=== PATIENT | male | born 1985 | race Caucasian/White ===

== ENCOUNTER 2016-05-05 10:03 | Inpatient (IN) | payer SELFPAY ==
[2016-05-05 11:56] LABS: % IMMATURE GRANULYOCYTES 1.3 % (0.0-1.1); ABSOLUTE IMMATURE GRANULOCYTES 0.09 10^3/uL (0.00-0.10); ADD DIFF? NO; ADD MORPH? NO; ADD SCAN? NO; ATYPICAL LYMPHOCYTE FLAG 10 (0-99); FRAGMENT RBC FLAG 0 (0-99); HEMATOCRIT 39.4 % (40.0-51.0); LEFT SHIFT FLG 10 (0-99); LIPEMIA HEMOLYSIS FLAG 90 (0-99); MEAN CELL HEMOGLOBIN 30.6 pg (27.9-34.1); MEAN CELL HEMOGLOBIN CONCENTR. 35.5 g/dL (32.4-36.7); MEAN CELL VOLUME 86.2 fL (81.5-99.8); PLATELET CLUMPS FLAG 0 (0-99); PLATELET COUNT 357 10^3/uL (150-400); RED BLOOD CELL COUNT 4.57 10^6/uL (4.40-6.38); RED CELL DISTRIBUTION WIDTH 14.5 % (11.5-15.2)
[2016-05-05] MEDS ORDERED: HYDROmorphONE/DILAUDID 1 MG/ML SYR IVP ONE (12:12)
[2016-05-05] MEDS ORDERED: ONDANSETRON 4 MG/2 ML VIAL IVP ONE (12:12)
[2016-05-05] MEDS ORDERED: NS 1,000 ML IV ONE ×2 (12:12→12:51)
--- NOTE | 2016-05-05 12:17 | EDPHY ---
H & P Stated Complaint: Abdominal pain RUQ, urine dark brown, nausea 2 weeks. Source: Patient Exam Limitations: No limitations - Personal History Current Tetanus/Diphtheria Vaccine: No Current Tetanus Diphtheria and Acellular Pertussis (TDAP): No Tetanus Vaccine Date: 2006 - Medical/Surgical History Hx Asthma: No Hx Chronic Respiratory Disease: No Hx Diabetes: No Hx Cardiac Disease: No Hx Renal Disease: No Hx Cirrhosis: No Hx Alcoholism: Yes Hx HIV/AIDS: No Hx Splenectomy or Spleen Trauma: No Other PMH: ETOH gave up 2 weeks, JAMISON chronic back pain. - Family History Significant Family History: No pertinent family hx - Social History Smoking Status: Current every day smoker Alcohol Use: Heavy (Last drink 2 weeks ago) Drug Use: Marijuana Time Seen by Provider: 05/05/16 12:14 HPI/ROS: HPI: 30-year-old male presents to emergency department with chief concern 5/10 right upper quadrant and epigastric pain for 2 weeks associated with decreased appetite, nausea, vomiting, intermittent diarrhea, dark colored urine common and whitish stools. Denies fever, chills, dizziness, headache, URI symptoms, shortness of breath, chest pain. Reports intermittent left lower quadrant and back pain with urination or stool. History of chronic EtOH use since age 16. Pack daily smoker since 8th grade. Uses cannabis occasionally. He works as a telephone maintenance mechanic. He denies other illicit drug use. Denies past medical history other than chronic back pain. Recently moved here from [place]. ROS:10 point review of systems is negative other than as stated in HPI (Aleena Carrillo) - Social History Additional Social History: In a relationship, works as a telephone maintenance mechanic (Aleena Carrillo) - Physical Exam Exam: Vital signs stable, reviewed by me General: Awake, alert, calm, cooperative. No acute distress. Head: Normalocephalic. Atraumatic. EENT: PERRLA. EOMI. Scleral icterus bilaterally. No nystagmus. No injection. TMs intact bilaterally with normal landmarks. No rhinnorhea, nasal passages clear. Oropharynx without redness, exudates, or lesions. Tonsils 2+ bilaterally , no exudates. Neck: Supple, nontender. No lymphadenopathy. Full range of motion. No meningismus. Respiratory: Breathing unlabored. Breath sounds equal bilaterally and clear to auscultation. No adventitious sounds. CV: Chest nontender, atraumatic. Heart rate regular. No murmur, distal pulses 2+ bilaterally. Brisk cap refill all extremities. GI: Abdomen soft, mild distension, moderate epigastric and right upper quadrant tenderness. No pulsatile masses. Bowel sounds normoactive and positive x4 quadrants. : No CVA or flank tenderness. Neuro: Alert. Oriented x 3. Speech clear. Nonfocal cranial nerves throughout. Sensation intact all extremities. Skin: Skin warm, dry, intact. No rashes, abrasions, or lacerations. Skin turgor normal. Extremities: Full range of motion in all 4 extremities. Strength 5+ all extremities. (Aleena Carrillo) Constitutional: Initial Vital Signs Temperature (C) 36.7 C 05/05/16 10:06 Heart Rate 95 05/05/16 10:06 Respiratory Rate 16 05/05/16 10:06 Blood Pressure 122/79 H 05/05/16 10:06 O2 Sat (%) 93 05/05/16 10:06 O2 Delivery Mode Room Air Allergies/Adverse Reactions: No Known Allergies Allergy (Unverified 05/05/16 10:10) Home Medications: Medication Instructions Recorded NK [No Known Home Meds] 05/05/16 Medical Decision Making ED Course/Re-evaluation: 30-year-old male presents to emergency department with chief concern mid epigastric, right upper quadrant pain, dark colored urine, whitish stools, nausea, vomiting x2 weeks. He has been a chronic alcohol abuser since age 16. Denies IV drug abuse. He is jaundiced with scleral icterus. White count 7090. BUN and creatinine are 15 and 0.8. Total bili 12.2, conjugated bili 10.5, unconjugated bili 1.7. AST 250, ALT 505, alk-phos 362, lipase 123. Urinalysis negative for UTI. Positive for bili. Given 2 L normal saline, 4 mg IV Zofran, 1 mg IV Dilaudid. Ultrasound shows a contracted gallbladder. Will need to be repeated. CT abdomen pelvis notable for ascites and a mildly enlarged liver. Will be admitted to the hospitalist service for alcoholic hepatitis. Report given to Dr. Noemi Davenport. (Aleena Carrillo) Differential Diagnosis: Differential diagnosis includes but is not limited to and in no particular order pancreatitis, alcoholic hepatitis, bacterial peritonitis, cholecystitis, dyspepsia, liver CA (Aleena Carrillo) I have evaluated and participated in the management of this patient. My co- signature indicates that I have reviewed this chart and that I agree with the findings and the plan of care as documented. My personal history and physical findings include: 30 year old male with two weeks of RUQ and midepigastric abdominal pain, N/V, dark urine, and light stools. No fever. History of alcohol abuse since teens. On exam he is jaundiced with scleral icterus, lungs cta, cor RRR, abdomen slightly distended with moderate tenderness in RUQ, no palpable hepatomegaly. He is alert and appropriate. Neuro exam nonfocal. I have reviewed labs and radiographs. He appears to have alcoholic hepatitis with a conjugated hyperbilirubinemia ( 12.2 bili), elevated transaminases, lipase 123. RUQ US shows contracted GB; biliary obstruction possible. Viral hepatitis also in the differential. He is being admitted to the medicine service. No active alcohol withdrawal signs at time of my exam. (Sabina Sabillon) Other Provider: I have evaluated and participated in the management of this patient. My co- signature indicates that I have reviewed this chart and that I agree with the findings and the plan of care as documented. My personal history and physical findings include: (Sabina Sabillon) - Data Points Laboratory Results: Laboratory Results 05/05/16 11:45 05/05/16 11:45 Medications Given: Discontinued Medications Famotidine (Pepcid) 20 mg PO BID DONTAE Stop: 11/02/16 20:59 Last Admin: 05/07/16 09:09 Dose: 20 mg Folic Acid (Folic Acid) 1 mg PO DAILY DONTAE Stop: 11/01/16 15:59 Last Admin: 05/07/16 09:09 Dose: 1 mg Hydromorphone HCl (Dilaudid) 1 mg IVP EDNOW ONE Stop: 05/05/16 12:13 Last Admin: 05/05/16 12:39 Dose: 1 mg Sodium Chloride (Ns) 1,000 mls @ 0 mls/hr IV ONCE ONE PRN Reason: Wide Open Stop: 05/05/16 12:13 Last Admin: 05/05/16 12:38 Dose: 1,000 mls Sodium Chloride (Ns) 1,000 mls @ 0 mls/hr IV ONCE ONE PRN Reason: Wide Open Stop: 05/05/16 12:52 Last Admin: 05/05/16 13:00 Dose: 1,000 mls Sodium Chloride (Ns) 1,000 mls @ 150 mls/hr IV CONT DONTAE Stop: 11/01/16 15:59 Last Admin: 05/06/16 11:43 Dose: 1,000 mls Famotidine/Sodium Chloride (Pepcid 20 Mg (Premix)) 50 mls @ 200 mls/hr IV Q12HRS DONTAE Stop: 11/01/16 20:59 Last Admin: 05/06/16 11:43 Dose: 50 mls Multivitamins (Tab-A-Ector) 1 each PO DAILY DONTAE Stop: 11/01/16 15:59 Last Admin: 05/07/16 09:09 Dose: 1 each Ondansetron HCl (Zofran) 4 mg IVP EDNOW ONE Stop: 05/05/16 12:13 Last Admin: 05/05/16 12:39 Dose: 4 mg Departure - Departure Disposition: [facility] Inpatient Acute Clinical Impression: Alcoholic hepatitis with ascites Condition: Good
[2016-05-05 12:28] LABS: ALANINE AMINOTRANSFERASE 505 IU/L (21-72); ALBUMIN 3.9 g/dL (3.5-5.0); ALKALINE PHOSPHATASE 362 IU/L (38-126); ANION GAP 12 mEq/L (8-16); ASPARTATE AMINOTRANSFERASE 250 IU/L (17-59); BILIRUBIN,TOTAL 12.2 mg/dL (0.1-1.4); BILIRUBIN-CONJUGATED 10.5 mg/dL (0.0-0.5); BILIRUBIN-UNCONJUGATED 1.7 mg/dL (0.0-1.1); CALCIUM 9.5 mg/dL (8.5-10.4); CARBON DIOXIDE 22 mEq/l (22-31); CHLORIDE 103 mEq/L (97-110); CREATININE 0.8 mg/dL (0.7-1.3); GLOMERULAR FILTRATION RATE > 60; GLUCOSE 82 mg/dL (70-100); POTASSIUM 4.6 mEq/L (3.5-5.2); SODIUM 137 mEq/L (134-144); TOTAL PROTEIN 7.1 g/dL (6.3-8.2)
[2016-05-05 13:07] LABS: INR 0.93 (0.83-1.16); PROTIME(PATIENT) 12.4 SEC (12.0-15.0)
[2016-05-05 13:08] LABS: APTT 24.9 SEC (23.0-38.0)
[2016-05-05] MEDS ORDERED: IOPAMIDOL (ISOVUE-300) 100 ML BTL IV ONE (13:21)
[2016-05-05 13:31] LABS: COLOR AMBER; LEUKOCYTE ESTERASE,URINE NEGATIVE (NEGATIVE); NITRITE,URINE NEGATIVE (NEGATIVE)
[2016-05-05] MEDS ORDERED: ONDANSETRON 4 MG/2 ML VIAL IVP PRN (15:40)
[2016-05-05] MEDS ORDERED: ONDANSETRON DISINTEGRATING 4 MG TAB PO PRN (15:40)
[2016-05-05] MEDS ORDERED: oxyCODONE IR 5 MG TAB PO PRN (15:40)
[2016-05-05] MEDS ORDERED: LORazepam 1 MG TAB PO PRN (15:47)
--- NOTE | 2016-05-05 16:36 | GHP ---
[f rep st] HISTORY AND PHYSICAL DATE OF ADMISSION: 05/05/2016 CHIEF COMPLAINT: Abdominal pain, nausea and vomiting. HISTORY OF PRESENT ILLNESS: Mr. Silva is a 30-year-old male with a history of extensive alcohol abuse who presents to the emergency department with 2 weeks of epigastric and right upper quadrant abdominal pain associated with nausea, vomiting, dark colored urine and ubaldo-colored stools. He states he began feeling ill approximately 2 weeks ago after taking 8 tablets of Kratom. He states this is an over the counter synthetic form of the drug Aleena, which he was given by a friend. In addition to this, he had been drinking heavily. He quantifies his alcohol intake at four to six 24 ounce beers per day along with shots of whiskey as needed until he becomes intoxicated. When he fell ill after the Kratom tablets, he quit drinking completely. He states his last drink was over 2 weeks ago. Since that time, he has had persistent epigastric and right upper quadrant abdominal pain. This is associated with nausea and vomiting approximately twice a day. He denies hematemesis, coffee-ground emesis or melanotic stools. He denies fevers or chills. He has had a poor appetite in the setting of his above symptoms. He has tried to push fluids. His symptoms have not improved and he ultimately sought care in the emergency department today. In the ER, he was found to have elevated liver enzymes with hyperbilirubinemia. His imaging was not consistent with an obstructive pattern, though his gallbladder was contracted on the ultrasound. He was given 2 L of normal saline and he was admitted to the hospital for further management. PAST MEDICAL HISTORY: 1. Alcohol abuse. 2. Tobacco abuse. 3. Cannabis use. MEDICATIONS: None. ALLERGIES: No known drug allergies. FAMILY HISTORY: His maternal grandmother had liver cancer and melanoma. He also reports a family history of alcohol abuse. SOCIAL HISTORY: The patient has a female partner. He has a history of heavy drinking including beer and whiskey. His last drink was 2 weeks ago. He reports occasional cannabis use. He denies any history of IV drug abuse. 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 REVIEW OF SYSTEMS: A 10-point review of systems was performed and is negative except as per HPI. OBJECTIVE: VITAL SIGNS: Temperature is 36.7, blood pressure 113/65, heart rate 52, respiratory rate 16, he is 97% on room air. GENERAL: The patient is awake, alert, oriented, no acute distress. HEENT: Head is atraumatic, normocephalic. Pupils are equal, round, and reactive to light. Sclerae are icteric. Oropharynx is clear. Mucous membranes are moist. NECK: Supple. There is no JVD. HEART: Regular rate and rhythm without murmur. LUNGS: Clear to auscultation bilaterally. ABDOMEN: Soft. He has mild epigastric and right upper quadrant tenderness to palpation with liver edge palpable just below the right costal margin. There is no rebound, rigidity or guarding. No fluid wave is present. EXTREMITIES: Without cyanosis, clubbing, or edema. SKIN: Jaundiced. NEUROLOGIC: Grossly nonfocal. There is no asterixis. IMAGING: CT abdomen, pelvis with IV contrast shows mild hepatomegaly without evidence of biliary obstruction or evidence of pancreatitis. The gallbladder is contracted. There is a small amount of ascites in the pelvis. Abdominal ultrasound shows, again, a contracted gallbladder. The study was nondiagnostic for gallstones. There is no pericholecystic fluid. The liver was homogeneous with normal echogenicity without evidence of hepatic mass or metastatic disease. LABORATORY DATA: CBC reveals a normal white blood cell count. INR is normal at 0.93, PT is 12.4, electrolytes are normal, creatinine 0.8. Total bilirubin 12.2, conjugated bilirubin 10.5, unconjugated bilirubin 1.7. AST 250, ALT 505, alkaline phosphatase 362. Lipase is normal at 123. Urinalysis is positive for bilirubin, 4+ urobilinogen, is otherwise negative. Albumin is 3.9. ASSESSMENT AND PLAN: Mr. Silva is a 30-year-old male who presents to the hospital with 2 weeks of abdominal pain, nausea and vomiting. 1. Abdominal pain in setting of elevated liver enzymes with conjugated hyperbilirubinemia. His clinical picture and history is most consistent with alcoholic hepatitis. Also consider drug or toxin effect given his use of Kratom versus a viral hepatitis or biliary obstruction. He has no evidence of infection at this time. His common bile duct was of normal caliber on his ultrasound. However, given the obstructive pattern of his liver function tests , an MRCP will be ordered for the morning. We will also check a viral hepatitis panel as well as antismooth muscle antibody and antimitochondrial antibody to rule out autoimmune hepatitis and primary biliary cholangitis. His discriminant function score is 7, thus he is not a candidate for steroids at this time. He will receive supportive care with IV fluid resuscitation and a low-sodium diet. He has a small amount of ascites, but I do not think there is an indication for paracentesis at this time. We will continue to trend his liver function tests and obtain a Gastroenterology consult should his trend worsen. 2. History of alcohol abuse. The patient states his last drink was 2 weeks ago. We will monitor him on CIWA protocol to ensure no evidence of withdrawal. Replace his vitamins and monitor closely. 3. Deep vein thrombosis prophylaxis. The patient is low risk. We will place sequential compression devices for now. CODE STATUS: Patient is full code. DISPOSITION: Patient admitted to inpatient status as he will likely require greater than 48 hours hospitalization for ongoing management of his acute suspected alcoholic hepatitis. /[id number]/MODL MTDD
[2016-05-05] MEDS: NS 1,000 ML IV SCH (17:07)
[2016-05-05] MEDS: FOLIC ACID 1 MG TAB PO SCH (17:16)
[2016-05-05] MEDS: MULTIVITAMINS 1 EACH TAB PO SCH (17:16)
[2016-05-05 19:02] LABS: PHENCYCLIDINE URINE BCH < 6 ng/ml (NEGATIVE); PHENCYCLIDINE URINE BCH NEGATIVE (NEGATIVE)
[2016-05-05 19:13] LABS: TETRAHYDROCANNABINOL URINE > 800 ng/mL (NEGATIVE)
[2016-05-05 19:18] LABS: TETRAHYDROCANNABINOL URINE > 800 ng/mL (NEGATIVE)
[2016-05-05] MEDS: FAMOTIDINE 20 MG/NACL 50 ML IV SCH (20:10)
[2016-05-06] MEDS: NS 1,000 ML IV SCH ×2 (03:01→11:43)
[2016-05-06 04:39] LABS: % IMMATURE GRANULYOCYTES 1.3 % (0.0-1.1); ABSOLUTE IMMATURE GRANULOCYTES 0.09 10^3/uL (0.00-0.10); ADD DIFF? NO; ADD MORPH? NO; ADD SCAN? NO; ATYPICAL LYMPHOCYTE FLAG 10 (0-99); FRAGMENT RBC FLAG 0 (0-99); HEMATOCRIT 35.8 % (40.0-51.0); HEMOGLOBIN 12.9 g/dL (13.7-17.5); LEFT SHIFT FLG 10 (0-99); LIPEMIA HEMOLYSIS FLAG 90 (0-99); MEAN CELL HEMOGLOBIN 30.9 pg (27.9-34.1); MEAN CELL VOLUME 85.6 fL (81.5-99.8); MEAN PLATELET VOLUME 10.5 fL (8.7-11.7); PLATELET CLUMPS FLAG 0 (0-99); PLATELET COUNT 348 10^3/uL (150-400); RED BLOOD CELL COUNT 4.18 10^6/uL (4.40-6.38); RED CELL DISTRIBUTION WIDTH 14.6 % (11.5-15.2)
[2016-05-06 04:49] LABS: INR 0.96 (0.83-1.16); PROTIME(PATIENT) 12.7 SEC (12.0-15.0)
[2016-05-06 04:58] LABS: ALANINE AMINOTRANSFERASE 444 IU/L (21-72); ALBUMIN 3.3 g/dL (3.5-5.0); ALKALINE PHOSPHATASE 323 IU/L (38-126); ANION GAP 10 mEq/L (8-16); ASPARTATE AMINOTRANSFERASE 188 IU/L (17-59); BILIRUBIN,TOTAL 9.7 mg/dL (0.1-1.4); CALCIUM 9.1 mg/dL (8.5-10.4); CARBON DIOXIDE 21 mEq/l (22-31); CHLORIDE 107 mEq/L (97-110); CREATININE 0.8 mg/dL (0.7-1.3); GLOMERULAR FILTRATION RATE > 60; GLUCOSE 91 mg/dL (70-100); MAGNESIUM 2.1 mg/dL (1.6-2.3); POTASSIUM 4.6 mEq/L (3.5-5.2); SODIUM 138 mEq/L (134-144); TOTAL PROTEIN 6.1 g/dL (6.3-8.2)
[2016-05-06 05:05] LABS: BILIRUBIN-CONJUGATED 8.2 mg/dL (0.0-0.5); BILIRUBIN-UNCONJUGATED 1.5 mg/dL (0.0-1.1)
[2016-05-06] MEDS ORDERED: GADOBUTROL 10 ML VIAL IVP ONE (08:50)
--- NOTE | 2016-05-06 10:20 | HOSPPROG ---
Hospitalist Progress Note Assessment/Plan: # acute hepatitis: d/t etOH? low DF, no steroids - MRCP pending - check ARJUN, hold on further eval pending MRCP # etOH abuse - has been abstinent for 2 weeks ## new pt to me CT/US reviewed Subjective: urinating more than previous Objective: Vital Signs Temp Pulse Resp BP Pulse Ox 36.6 C 58 L 17 116/63 94 05/06/16 08:00 05/06/16 08:00 05/06/16 08:00 05/06/16 08:00 05/06/16 08:00 Laboratory Results 05/06/16 03:40 05/06/16 03:40 05/05/16 05/06/16 05/07/16 05:59 05:59 05:59 Intake Total 2750 Output Total 550 Balance 2200 PT 12.7 SEC (12.0-15.0) 05/06/16 03:40 INR 0.96 (0.83-1.16) 05/06/16 03:40 - Physical Exam Eyes: icteric sclera Cardiovascular: regular rate and rhythym, no murmur, rub, or gallop Respiratory: no respiratory distress, no rales or rhonchi, clear to auscultation Gastrointestinal: normoactive bowel sounds, soft, non-tender abdomen, no palpable masses Skin: other (jaundiced) ICD10 Worksheet Patient Problems: Problems Problem Status Onset Alcoholic hepatitis with ascites Acute
[2016-05-06] MEDS: MULTIVITAMINS 1 EACH TAB PO SCH (11:43)
[2016-05-06] MEDS: FAMOTIDINE 20 MG/NACL 50 ML IV SCH (11:43)
[2016-05-06] MEDS: FOLIC ACID 1 MG TAB PO SCH (11:43)
[2016-05-06 19:58] VITALS: RESP 16
[2016-05-06] MEDS: FAMOTIDINE 20 MG TAB PO SCH (20:37)
[2016-05-07 05:21] LABS: % IMMATURE GRANULYOCYTES 2.4 % (0.0-1.1); ABSOLUTE IMMATURE GRANULOCYTES 0.17 10^3/uL (0.00-0.10); ADD DIFF? NO; ADD MORPH? NO; ADD SCAN? NO; ATYPICAL LYMPHOCYTE FLAG 10 (0-99); FRAGMENT RBC FLAG 0 (0-99); HEMATOCRIT 38.3 % (40.0-51.0); HEMOGLOBIN 13.5 g/dL (13.7-17.5); LEFT SHIFT FLG 20 (0-99); LIPEMIA HEMOLYSIS FLAG 90 (0-99); MEAN CELL HEMOGLOBIN 30.6 pg (27.9-34.1); MEAN CELL HEMOGLOBIN CONCENTR. 35.2 g/dL (32.4-36.7); MEAN CELL VOLUME 86.8 fL (81.5-99.8); MEAN PLATELET VOLUME 10.5 fL (8.7-11.7); PLATELET CLUMPS FLAG 0 (0-99); PLATELET COUNT 371 10^3/uL (150-400); RED BLOOD CELL COUNT 4.41 10^6/uL (4.40-6.38); RED CELL DISTRIBUTION WIDTH 14.6 % (11.5-15.2)
[2016-05-07 05:25] VITALS: PULSE 55; TEMP 98
[2016-05-07 05:40] LABS: ALANINE AMINOTRANSFERASE 413 IU/L (21-72); ALBUMIN 3.7 g/dL (3.5-5.0); ALKALINE PHOSPHATASE 343 IU/L (38-126); ANION GAP 8 mEq/L (8-16); ASPARTATE AMINOTRANSFERASE 151 IU/L (17-59); BILIRUBIN,TOTAL 6.2 mg/dL (0.1-1.4); CALCIUM 9.5 mg/dL (8.5-10.4); CARBON DIOXIDE 25 mEq/l (22-31); CHLORIDE 106 mEq/L (97-110); CREATININE 0.8 mg/dL (0.7-1.3); GLOMERULAR FILTRATION RATE > 60; GLUCOSE 94 mg/dL (70-100); POTASSIUM 4.7 mEq/L (3.5-5.2); SODIUM 139 mEq/L (134-144); TOTAL PROTEIN 6.5 g/dL (6.3-8.2)
[2016-05-07 05:47] LABS: BILIRUBIN-CONJUGATED 4.7 mg/dL (0.0-0.5); BILIRUBIN-UNCONJUGATED 1.5 mg/dL (0.0-1.1)
[2016-05-07 07:35] VITALS: BP 97/64; O2SAT 96
[2016-05-07] MEDS: MULTIVITAMINS 1 EACH TAB PO SCH (09:09)
[2016-05-07] MEDS: FOLIC ACID 1 MG TAB PO SCH (09:09)
[2016-05-07] MEDS: FAMOTIDINE 20 MG TAB PO SCH (09:09)
--- NOTE | 2016-05-07 11:16 | GDS ---
[f rep st] DISCHARGE SUMMARY FINAL DIAGNOSIS: 1. Acute hepatitis. 2. Alcohol abuse, currently abstinent. DATA: 1. MRCP of his abdomen which was normal. 2. Abdominal CT showing mild hepatomegaly with a contracted gallbladder. 3. Abdominal ultrasound showing a contracted gallbladder. HOSPITAL COURSE: A 30-year-old man admitted with nausea, vomiting, mild abdominal pain. Found to have acute hepatitis. I believe the etiology is probably alcohol though his history is not completely consistent with this. When he presented his bilirubin was 12; it is down to 6 on the day of discharge. He is eating and drinking well, ambulating safely in the halls. He had noted cola colored urine for a few weeks. It is now back to a normal color. Pending at the time of discharge is ARJUN, anti-smooth muscle antibodies. His viral hepatitis serologies were negative. Discussed this with Dr. Modi. He will follow up with Dr. Lewis, soft work cigar machine operator of [facility]. He also needs to establish with a primary care physician, he has been given multiple people's names. He should have labs checked within the next few weeks if he is able to accomplish this. I gave him strict return precautions. He feels comfortable with this plan and will be discharged home in stable condition BILLING: I spent more than 30 minutes on the day of discharge coordinating care. /[id number]/MODL MTDD
[2016-05-08] MEDS ORDERED: THIAMINE HCL 100 MG TAB PO SCH (09:00)
[2016-05-08 11:12] LABS: SMOOTH MUSCLE ANTIBODIES SERUM Negative (Negative)
== END 2016-05-07 10:44 | disposition home or self-care (01) | DRG 443 ==
LOC: F2W 15:45
PROVIDERS: ADMIT Hospitalist; ATTEND Student in an Organized Health Care Education/Training Program
DX: B17.9 Acute viral hepatitis, unspecified (principal); F17.210 Nicotine dependence, cigarettes, uncomplicated; F10.10 Alcohol abuse, uncomplicated; F12.90 Cannabis use, unspecified, uncomplicated
CPT/HCPCS: 80307; 86255-90; 96374; A9585; G0472; G0480; J1170; J2405; Q9967